=== PATIENT | female | born 1995 | race Hispanic/Latino ===

== ENCOUNTER 2019-07-09 13:53 | Emergency (ER) | payer BC ==
--- OUTSIDE RECORDS SUMMARY | 2019-07-09 13:55 | XMS REPORT | Summary of Care ---
:1995 Author Organization [facility] Address [address] [place] [id number] Care Team Providers Name Role Phone Jacoby Lorenz MD Primary Care Provider Reason for Visit Reason Comments BOIL on left inner thigh Encounter Details Date Type Department Care Team Description 12/22/2018 Urgent Care [facility] Unknown, Attending Abscess, groin Urgent Care Luna Owens PA-C [address] [place] [id number] (Primary Dx) [address] [place] [address] Allergies No Known Allergiesdocumented as of this encounter (statuses as of 12/22/2018) Medications Medication Sig Dispensed Refills Start Date End Date Status clindamycin 300 mg Take 1 capsule 21 capsule 0 12/22/2018 12/29/2018 Active capsuleIndications: by mouth 3 Abscess, groin (three) times daily for 7 days. mupirocin 2 % Apply to 22 g 3 12/22/2018 Active ointmentIndications: area(s) 3 Abscess, groin (three) times daily. documented as of this encounter (statuses as of 12/22/2018) Active Problems Not on filedocumented as of this encounter (statuses as of 12/22/2018) Social History Tobacco Use Types Packs/Day Years Used Date Never Smoker Smokeless Tobacco: Never Used Sex Assigned at Date Recorded Not on file Job Start Date Occupation Industry Not on file Not on file Not on file Travel History Travel Start Travel End No recent travel history available. documented as of this encounter Last Filed Vital Signs Vital Sign Reading Time Taken Comments Blood Pressure 139/88 12/22/2018 7:23 PM CDT Pulse 90 12/22/2018 7:23 PM CDT Temperature 37.1 C (98.8 F) 12/22/2018 7:23 PM CDT Respiratory Rate 18 12/22/2018 7:23 PM CDT Oxygen Saturation 97% 12/22/2018 7:23 PM CDT Inhaled Oxygen Concentration - - Weight 99.8 kg (220 lb) 12/22/2018 7:23 PM CDT Height 162.6 cm (5' 4") 12/22/2018 7:23 PM CDT Body Mass Index 37.76 12/22/2018 7:23 PM CDT documented in this encounter Patient Instructions Patient InstructionsLuna Owens PA-C - 12/22/2018 6:45 PM CDT Chlorhexidine topical antiseptic Brand Names: Betasept, Hibiclens What is this medicine? CHLORHEXIDINE (klor HEX i yissel) is used as a skin wound cleanser and a general skin cleanser. This medicine is also used as a surgical hand scrub and to cleanse the skin before surgery to help prevent infections. How should I use this medicine? This medicine is for external use only. Do not take by mouth. Follow the directions on the label or those given to you by your doctor or health intensive care unit nurse. Keep out of eyes, ears and mouth. Thismedicine should not be used as a preoperative skin preparation of the face or head. Talk to your gas roller operator regarding the use of this medicine in children. While this medicine may beused for children for selected conditions, precautions do apply. What side effects may I notice from receiving this medicine? Side effects that you should report to your doctor or health intensive care unit nurse as soon as possible: allergic reactions like skin rash, itching or hives, swelling of the face, lips, or tongue breathing problems cough Side effects that usually do not require medical attention (report to your doctor or health intensive care unit nurse if they continue or are bothersome): increased sensitivity to the sun skin irritation What may interact with this medicine? Interactions are not expected. What if I miss a dose? This does not apply; this medicine is not for regular use. Where should I keep my medicine? Keep out of the reach of children. Store at room temperature between 15 and 30 degrees C (59 and 86 degrees F). Store away from direct light and heat. Do not freeze. Throw away any unused medicine after the expiration date. What should I tell my health care provider before I take this medicine? They need to know if you have any of the following conditions: any skin rashes or problems an unusual or allergic reaction to chlorhexidine, other medicines, foods, dyes, or preservatives or trying to get breast-feeding What should I watch for while using this medicine? This medicine may cause severe allergic reactions. Notify a health intensive care unit nurse right away if you think you are having an allergic reaction. Do not take this medicine by mouth. Avoid contact with your ears and eyes. If contact with the eyes occur, rinse the eyes well with plenty of cool tap water. NOTE:This sheet is a summary. It may not cover all possible information. If you have questions aboutthis medicine, talk to your doctor, pharmacist, or health care provider. Copyright 2018 Elsevier Abscess (Antibiotic Treatment Only) An abscess (sometimes called a boil) happens when bacteria get trapped under the skin and start to grow. Pus forms inside the abscess as the body responds to the bacteria. An abscess can happen with an insect bite, ingrown hair, blocked oil gland, pimple, cyst, or puncture wound. In the early stages, your wound may be red and tender. For this stage, you may get antibiotics. If the abscess does not get better with antibiotics, it will need to be drained with a small cut. Home care These tips will help you care for your abscess at home: Soak the wound in hot water or apply hot packs (small towel soaked in hot water) to the area for 20 minutes at a time. Do this 3 to 4 times a day. Do not cut, squeeze, or pop the boil yourself. Apply antibiotic cream or ointment to the skin 3 to 4 times a day, unless something else was prescribed. Some ointments include an antibiotic plus a pain reliever. If your doctor prescribed antibiotics, do not stop taking them until you have finished the medicine or the doctor tells you to stop. You may use an aqir-mnw-ubfnajn pain medicine to control pain, unless another pain medicine was prescribed. If you have chronic liver or kidney disease or ever had a stomach ulcer orgastrointestinal bleeding, talk with your doctor before using these any of these. Follow-up care Follow up with your healthcare provider, or as advised. Check your wound each day for the signs of worsening infection listed below. When to seek medical advice Get prompt medical attention if any of these occur: An increase in redness or swelling Red streaks in the skin leading away from the abscess An increase in local pain or swelling Fever of 100.4F (38C) or higher, or as directed by your healthcare provider Pus or fluid coming from the abscess Boil returns after getting better Date Last Reviewed: 12/19/201519995789-[address] [employer] [place] [address]. All rights reserved. This information is not intended as a substitute for professional medical care. Always follow your healthcare professional's instructions. documented in this encounter Progress Notes Luna Owens PA-C - 12/22/2018 6:45 PM CDT Cc: Chief Complaint Patient presents with BOIL on left inner thigh Mansi Springer is a 23 year old female coming in with abscess to her L groin that ruptured on its own. Patient reports she has recurrent boils on her inner thighs, sometimes on her vaginal area and buttocks. Patient reports she has not had a fever, chills. Patient reports apply antifungal and abx ointment otc. 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 . HPI Allergies Mansi has No Known Allergies. Medications No outpatient medications prior to visit. No facility-administered medications prior to visit. Histories No past medical history on file. No past surgical history on file. Social History Socioeconomic History Marital status: Spouse name: Not on file Number of children: Not on file Years of education: Not on file Highest education level: Not on file Occupational History Not on file Social Needs Financial resource strain: Not on file Food insecurity: Worry: Not on file Inability: Not on file Transportation needs: Medical: Not on file Non-medical: Not on file Tobacco Use Smoking status: Never Smoker Smokeless tobacco: Never Used Substance and Sexual Activity Alcohol use: Not on file Drug use: Not on file Sexual activity: Not on file Lifestyle Physical activity: Days per week: Not on file Minutes per session: Not on file Stress: Not on file Relationships Social connections: Talks on phone: Not on file Gets together: Not on file Attends mu-ism service: Not on file Active member of club or organization: Not on file Attends meetings of clubs or organizations: Not on file Relationship status: Not on file Intimate partner violence: Fear of current or ex partner: Not on file Emotionally abused: Not on file Physically abused: Not on file Forced sexual activity: Not on file Other Topics Concern Not on file Social History Narrative Not on file No family history on file. Review of Systems Constitutional: Negative for appetite change, fatigue and fever. HENT: Negative for rhinorrhea and sore throat. Eyes: Negative for pain and itching. Respiratory: Negative for cough, chest tightness and shortness of breath. Cardiovascular: Negative for chest pain and leg swelling. Gastrointestinal: Negative for abdominal pain, diarrhea and nausea. Genitourinary: Negative for dysuria and difficulty urinating. Musculoskeletal: Negative for gait problem and myalgias. Skin: Positive for wound. Negative for rash. Neurological: Negative for dizziness and headaches. Psychiatric/Behavioral: Negative for suicidal ideas. The patient is not nervous/ anxious. Endocrine: Negative for hair loss. Vital Signs BP 139/88 | Pulse 90 | Temp 37.1 C (98.8 F) (Oral) | Resp 18 | Ht 5' 4" (1.626 m) | Wt 220 lb (99.8 kg) | LMP 12/20/2018 | SpO2 97% | BMI 37.76 kg/ m Physical Exam Constitutional: She is oriented to person, place, and time. She appears well- developed and well-nourished. HENT: Head: Normocephalic and atraumatic. Eyes: Pupils are equal, round, and reactive to light. Neck: Normal range of motion. Neck supple. Cardiovascular: Normal rate, regular rhythm and normal heart sounds. Pulmonary/Chest: Effort normal and breath sounds normal. Musculoskeletal: Normal range of motion. Neurological: She is alert and oriented to person, place, and time. Skin: Skin is warm. There is erythema (abscess to L groin fluctuant, draining, indurated). Psychiatric: She has a normal mood and affect. Vitals reviewed. Assessment/Plan Abscess, groin (primary encounter diagnosis) Plan: clindamycin 300 mg capsule, mupirocin 2 % Ointment Patient education given about hygiene. Patient to try to keep area clean, cool, and dry. Patient to follow-up with PCP for evaluation of recurrent abscess. Patient to apply warm compresses. If sx worsen patient to rtc or go to ER. This visit did not involve counseling and coordination that comprised more than 50% of the visit time. Luna Owens PA-C 12/22/2018 8:44 PM Azeb Miller RN - 12/22/2018 6:45 PM Jaredmatti Springer is a 23 year old female that complains of recurrent boils. Pt currently has a boil on her left inner thigh that just started draining. Pt is ambulatory, A&Ox4, and is in no acute distress. BP 139/88 | Pulse 90 | Temp 37.1 C (98.8 F) (Oral) | Resp 18 | Ht 5' 4" (1.626 m) | Wt 220 lb (99.8 kg) | LMP 12/20/2018 | SpO2 97% | BMI 37.76 kg/ m AZEB ARNETT RNElectronically signed by Azeb Arnett, RN at 2018 8:45 PM CDTdocumented in this encounter Plan of Treatment Health Maintenance Due Date Last Done Comments VARICELLA VACCINES (1 of 2 - 13+ 2006 2-dose series) HPV VACCINES (1 - Female 3-dose 01/30/2008 series) DTaP,Tdap,and Td Vaccines (1 - 01/30/2012 Tdap) PAP SMEAR 2014 INFLUENZA VACCINE (#1) 2018 PNEUMOCOCCAL 0-64 YEARS COMBINED Aged Out No longer eligible based on SERIES patient's age to complete this topic documented as of this encounter Results Not on filedocumented in this encounter Visit Diagnoses Diagnosis Abscess, groin - Primary Cellulitis and abscess of trunk documented in this encounter Insurance Payer Benefit Plan Subscriber ID Effective Dates Phone Address Type / Group BCBS [facility] [id number] 2017-Aure [phone] [address] PPO/POS [place] - OUT OF t 7 [id number] [place] [address] documented as of this encounter
--- OUTSIDE RECORDS SUMMARY | 2019-07-09 13:55 | XMS REPORT ---
:1995 [facility] Address [address] [place] [address] [place] [address] Care Team Providers Name Role Phone Unavailable Unavailable Unavailable Problems This patient has no known problems. Allergies, Adverse Reactions, Alerts This patient has no known allergies or adverse reactions. Medications This patient has no known medications.
--- OUTSIDE RECORDS SUMMARY | 2019-07-09 13:55 | XMS REPORT | Summary of Care ---
:1995 Author Organization [facility] - [facility] Address [address] [place] [address] Care Team Providers Name Role Phone Jacoby Lorenz MD Primary Care Provider Encounter Details Date Type Department Care Team Description 12/22/2018 Orders Only [facility] Doctor Unassigned, [address] [facility] [place] [address] [address] [place] [address] Allergies Not on Filedocumented as of this encounter (statuses as of 12/22/2018) Medications Not on filedocumented as of this encounter (statuses as of 12/22/2018) Active Problems Not on filedocumented as of this encounter (statuses as of 12/22/2018) Social History Tobacco Use Types Packs/Day Years Used Date Never Assessed Sex Assigned at Date Recorded Not on file Job Start Date Occupation Industry Not on file Not on file Not on file Travel History Travel Start Travel End No recent travel history available. documented as of this encounter Last Filed Vital Signs Not on filedocumented in this encounter Plan of Treatment Health [...] this topic documented as of this encounter Procedures Procedure Name Priority Date/Time Associated Diagnosis Comments ASSIGNMENT OF BENEFITS Routine 12/22/2018 6:56 PM CDT documented in this encounter Results Not on filedocumented in this encounter Insurance Payer Benefit Plan Subscriber ID Effective Dates Phone Address Type / Group BCBS OF [facility] [id number] 2017-Aure [phone] [address] PPO/POS [place] - OUT OF t 7 [id number] [place] [address] documented as of this encounter
--- NOTE | 2019-07-09 14:44 | EDPHYS ---
Physician Documentation [facility] Name: Mansi Springer Age: 24 yrs Sex: Female : 1995 Arrival Date: 07/09/2019 Time: 13:56 Bed 7 Private MD: ED Physician Keith Roberson HPI: 07/08 14:16 This 24 yrs old Female presents to ER via Ambulatory with complaints of Hand la1 Injury. 14:16 The patient or guardian reports an abrasion, pain. The complaints affect the MCP of la1 right middle finger, PIP of right ring finger, PIP of right little finger and MCP of right little finger. Context: The problem was sustained outdoors. Onset: The symptoms/episode began/occurred this morning. Modifying factors: The symptoms are alleviated by nothing, the symptoms are aggravated by movement. Associated signs and symptoms: The patient has no apparent associated signs or symptoms. Severity of symptoms: At their worst the symptoms were very mild. The patient has not experienced similar symptoms in the past. 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 - Social history:: Smoking status: unknown. ROS: 14:16 Constitutional: Negative for fever, chills, and weight loss, Eyes: Negative for injury, la1 pain, redness, and discharge, ENT: Negative for injury, pain, and discharge, Cardiovascular: Negative for chest pain, palpitations, and edema, Respiratory: Negative for shortness of breath, cough, wheezing, and pleuritic chest pain, Neuro: Negative for headache, weakness, numbness, tingling, and seizure. 14:16 MS/extremity: Positive for abrasion, pain, of the right hand. Exam: 14:17 Constitutional: This is a well developed, well nourished patient who is awake, alert, la1 and in no acute distress. Head/Face: Normocephalic, atraumatic. Chest/axilla: Normal chest wall appearance and motion. Nontender with no deformity. No lesions are appreciated. Cardiovascular: Regular rate and rhythm with a normal S1 and S2. Respiratory: Lungs have equal breath sounds bilaterally, clear to auscultation Back: No spinal tenderness. No costovertebral tenderness. Full range of motion. MS/ Extremity: Pulses equal, no cyanosis. Neurovascular intact. Full, normal range of motion. 14:17 Skin: multiple small abrasions to right hand, not bleeding, well cleaned at home with antibiotic ointment currently applied. Vital Signs: 14:08 BP 129 / 89; Pulse 78; Resp 17; Temp 98; Pulse Ox 100% ; Weight 95.25 kg; Height 5 ft. bp 4 in. (162.56 cm); 15:34 BP 113 / 69; Pulse 75; Resp 16; Temp 98.5; Pulse Ox 100% ; bp 14:08 Body Mass Index 36.05 (95.25 kg, 162.56 cm) bp MDM: 14:16 Patient medically screened. la1 14:42 Data reviewed: vital signs, nurses notes, radiologic studies, and as a result, I will la1 discharge patient. Data interpreted: Pulse oximetry: on room air is 100 %. Interpretation: normal. Counseling: I had a detailed discussion with the patient and/or guardian regarding: the historical points, exam findings, and any diagnostic results supporting the discharge/admit diagnosis, radiology results. Special discussion: Based on the history and exam findings, there is no indication for further emergent testing or inpatient evaluation. I discussed with the patient/guardian the need to see the orthopedic surgeon for further evaluation of the symptoms. 07/08 14:13 Order name: Hand Right 3 View XRAY bp Administered Medications: No medications were administered Disposition: 18:13 Co-signature as Attending Physician, Keith Roberson MD I agree with the assessment and kdr plan of care. Disposition: 07/09/19 14:43 Discharged to Home. Impression: Pain in right hand, Abrasion of hand. - Condition is Stable. - Discharge Instructions: Abrasion, Musculoskeletal Pain, Hand Pain. - Prescriptions for Keflex 250 mg Oral Capsule - take 1 capsule by ORAL route every 8 hours for 7 days; 21 capsule. - Medication Reconciliation Form, Thank You Letter form. - Follow up: Private Physician; When: 2 - 3 days; Reason: Recheck today's complaints, Re-evaluation by your physician. - Problem is new. - Symptoms have improved. Signatures: Dispatcher [employer] EDMS eKith Roberson MD MD kdr Christ Tom, CAREER BASED INTERVENTION COORDINATOR-C CAREER BASED INTERVENTION COORDINATOR-Cla1 Laurent Chavez, RN RN bp Corrections: (The following items were deleted from the chart) 15:36 14:43 07/09/2019 14:43 Discharged to Home. Impression: Pain in right hand; Abrasion of bp hand. Condition is Stable. Forms are Medication Reconciliation Form, Thank You Letter, Antibiotic Education, Prescription Opioid Use. Follow up: Private Physician; When: 2 - 3 days; Reason: Recheck today's complaints, Re-evaluation by your physician. Problem is new. Symptoms have improved. la1
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
[2019-07-09 15:44] VITALS: O2SAT 100
[2019-07-09 15:46] VITALS: BP 113/69; TEMP 98.5
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
== END 2019-07-09 15:36 | disposition home or self-care (01) ==
LOC: ER 13:53
DX: S60.511A Abrasion of right hand, initial encounter (principal); V19.3XXA Pedal cyclist (driver) (passenger) injured in unspecified nontraffic accident, initial encounter; Y93.89 Activity, other specified; Y92.89 Other specified places as the place of occurrence of the external cause
CPT/HCPCS: 99283